=== PATIENT | male | born 1990 | race Caucasian/White ===

== ENCOUNTER 2017-02-12 18:25 | Emergency (ER) | payer OTHER ==
[2017-02-12 19:13] LABS: BASO % 0.1 % (0.2-1.2); EOS # 0.1 10_X3_uL (0.0-0.5); EOS % 0.6 % (0.8-7.0); GRAN # 13.8 10_X3_uL (1.8-5.4); HEMATOCRIT 45.9 % (40-51); HEMOGLOBIN 15.4 g/dL (13.7-17.5); LYMPH # 0.5 10_X3_uL (1.3-3.6); MEAN CORPUSCULAR HEMOGLOBIN 28.6 pg (27.0-33.0); MEAN CORPUSCULAR HGB CONC 33.6 g/dL (32.0-36.0); MEAN CORPUSCULAR VOLUME 85.2 fL (79-92); MEAN PLATELET VOLUME 10.9 fl (7.5-11.5); MONO # 0.8 10_X3_uL (0.3-0.8); MONO % 5.3 % (5.3-12.2); PLATELET COUNT 282 x10_3/uL (163-337); RED BLOOD COUNT 5.39 x10_6/uL (4.6-6.1); RED CELL DISTRIBUTION WIDTH 13.3 % (11.6-14.4); WHITE BLOOD COUNT 15.2 x10_3/uL (4.2-9.1)
[2017-02-12 19:22] LABS: ALBUMIN 4.4 gm/dL (3.4-5.0); ALKALINE PHOSPHATASE 112 U/L (50-136); ALT/SGPT 29 U/L (7.53-40.17); AMYLASE 60 U/L (15.62-74.58); AST/SGOT 20 U/L (6.66-35.34); BILIRUBIN,TOTAL 0.59 mg/dL (0.0-1.0); CALCIUM 9.1 mg/dL (8.7-10.7); CARBON DIOXIDE 24 mmol/L (21-32); CREATININE 0.8 mg/dL (0.6-1.3); GLUCOSE,RANDOM 117 mg/dL (70-99); LIPASE 23 U/L (6.75-60.75); POTASSIUM 4.1 mmol/L (3.5-5.1); SODIUM 139 mmol/L (136-145); TOTAL PROTEIN 7.9 gm/dL (6.4-8.2)
[2017-02-12 19:24] LABS: BLOOD UREA NITROGEN 22 mg/dL (7-18)
== END 2017-02-12 21:27 | disposition home or self-care (01) ==
LOC: ER 18:25
PROVIDERS: General Practice
DX: K52.9 Noninfective gastroenteritis and colitis, unspecified (principal); K44.9 Diaphragmatic hernia without obstruction or gangrene; R07.81 Pleurodynia; R11.2 Nausea with vomiting, unspecified; R10.10 Upper abdominal pain, unspecified; R10.31 Right lower quadrant pain; R00.0 Tachycardia, unspecified
CPT/HCPCS: 36415; 71020; 80053; 82150; 83690; 85025; 87400; 96361; 96374; 99070; 99284-25; J7040; Q9967